=== PATIENT | male | born 1950 | race African-American/Black ===

== ENCOUNTER 2016-11-27 11:09 | Emergency (ER) | payer OTHER ==
[2016-11-27] MEDS ORDERED: NITROGLYCERIN SL PRN ×2 (11:17→11:35)
[2016-11-27] MEDS ORDERED: ASPIRIN PO STA ×3 (11:17→11:35)
--- NOTE | 2016-11-27 11:41 | PROVIDER DOCUMENTATION ---
HPI-Chest Pain - General Source: patient, family () - History of Present Illness-CP Location: reports: central Chest Pain Radiation: reports: no radiation Quality of Pain: reports: burning Severity in ED: mild Onset/Duration: last night Timing: gone now Context/Activities at Onset: reports: light activity Modifying Factors: improves with: nothing Associated Symptoms: denies: abdominal pain, back pain, diaphoresis, dizziness, edema, fatigue, fever/chills, headache, heartburn, nausea, rash, shortness of breath, swelling/lump in chest, syncope, vomiting, weakness Nitro Today/Relief: no nitro taken today Aspirin Treatment Today: no aspirin today Prior Chest Pain/Cardiac Workup: reports: stress test Similar Symptoms Previously?: Yes Recently Seen Here or By Another Healthcare Provider: Yes <Bernadette Rosales - Last Filed: 11/27/16 12:25> <Adan Jaime I - Last Filed: 11/27/16 12:46> - General Chief Complaint: Chest Pain Stated Complaint: CHEST PAIN Time Seen by Provider: 11/27/16 11:17 Allergies/Adverse Reactions: Patient Allergies Allergy/AdvReac Type Severity Reaction Status Date / Time No Known Allergies Allergy Verified 09/06/16 12:22 Home Medications: Home Medication List Medication Instructions Recorded Confirmed Last Taken Type Losartan/Hctz [Hyzaar 50/12.5 mg] 1 each PO DAILY 02/27/15 09/06/16 07/10/16 04: 30 History Amoxicillin [Amoxil] 875 mg PO BID #14 tablet 09/06/16 Unknown Rx Chlorpheniramine/Dextromethorp 1 each PO Q6H #30 tablet 09/06/16 Unknown Rx [Coricidin Hbp Cough & Cold Tab] - History of Present Illness-CP Nature of Presenting Problem: Pt is 66 y/o M presents to the ED with chest pain. Pt states it feels like it is burning. Pt denies SOB. Pt denies N/V/D. Pt states having prior chest pain. Pt states having a stress test 3 years ago. Pt states his PCP's told him he had a blockage in heart. (Bernadette Rosales) Review of Systems - Adult - REVIEW OF SYSTEMS - ADULT Constitutional: denies: chills, fever Eyes: denies: blurred vision, double vision Ears, Nose, Mouth & Throat: denies: ear pain, nose pain, throat pain Cardiovascular: reports: chest pain, irregular heart rate (ben). denies: heart murmur Respiratory: denies: cough, shortness of breath, wheezing Gastrointestinal: denies: abdominal pain, diarrhea, frequent heartburn, nausea, vomiting Genitourinary: denies: dysuria, hematuria Musculoskeletal: denies: bone pain, joint swelling, neck pain Integumentary: denies: hives, itching Neurological: denies: dizziness/vertigo, headache/migraines Psychiatric: reports: no symptoms reported Endocrine: reports: no symptoms reported Hematologic/Lymphatic: reports: no symptoms reported Allergic/Immunologic: reports: no symptoms reported All Other Systems: Reviewed and Negative <Bernadette Rosales - Last Filed: 11/27/16 12:25> Past History - Adult - PAST MEDICAL HISTORY-ADULT Review of Records: reports: Nursing Assessment Review, Medications Reviewed, Social history reviewed & non-contributory. Major Childhood Illnesses: reports: denies history Cardiovascular: reports: HTN Respiratory: reports: denies history Gastrointestinal: reports: GERD Obstetrical/Gynecological: reports: denies history Genitourinary: reports: denies history Musculoskeletal: reports: denies history Neurological: reports: denies history Endocrine/Immune: reports: denies history Other Conditions: reports: denies history - PRIOR SURGERIES/PROCEDURES Surgical/Procedure History: reports: none - IMMUNIZATION STATUS Childhood Immunizations: See Nurse Assessment Flu Vaccine: See Nurse Assessment - FAMILY HISTORY Family History: reviewed, not pertinent - SOCIAL HISTORY Smoking: quit greater than 1 year, cigarettes, less than 1 pack/day, other ( dips ) Provider spent 3-5 mins advising pt. on dangers of tobacco.: Discussed manners to quit use, and f/u contacts for add'l counseling. Substance Use: denies Living Situation: family <Bernadette oRsales - Last Filed: 11/27/16 12:25> Physical Exam-General - PHYSICAL EXAM-ADULT Initial Vital Signs Reviewed: Yes - CONSTITUTIONAL General Appearance: appears well, alert, no apparent distress - EYES Eyes: PERRL/EOMI, pink conjunctivae, fundi clear, no AV nicking - HEAD, EARS, NOSE, MOUTH & THROAT HENMT: normocephalic/atraumatic, moist mucous membranes, normal ENT inspection, TMs normal, pharynx normal - NECK Neck: non-tender, full range of motion, supple, normal inspection - RESPIRATORY Respiratory: chest non-tender, lungs clear, normal breath sounds, no pleuratic chest pain, no respiratory distress, no accessory muscle use - CARDIOVASCULAR Cardiovascular: normal peripheral pulses, no edema, no gallop, no JVD, no murmur , bradycardia - GASTROINTESTINAL (ABDOMEN) Abdominal Exam: normal bowel sounds, non tender, soft, no organomegaly, no pulsatile mass - LYMPHATIC Lymphatic: no adenopathy - MUSCULOSKELETAL Back Exam: normal inspection, no CVA tenderness, no vertebral tenderness Extremity: normal range of motion, non-tender, normal gait, normal inspection, no pedal edema, no calf tenderness, normal capillary refill - SKIN Integumentary: normal color, normal turgor, warm/dry - NEUROLOGIC Neurologic: grossly normal - PSYCHIATRIC Psych/Mental Status: normal mood/affect, oriented x 3 <Bernadette Rosales - Last Filed: 11/27/16 12:25> Progress - EKG 1 Time of EKG reading by physician:: 11:22 EKG Read and Signed by:: Adan Jaime EKG Interpretation (*Must complete 3 of following elements*): Abnormal Rate: 52 Rhythm: sinus bradycardia Comments: otherwise normal ECG - XRAY 1 XRAY: Bilateral XRAY Study: Chest <Bernadette Rosales - Last Filed: 11/27/16 12:25> <Adan Jaime I - Last Filed: 11/27/16 12:46> - PLAN OF CARE/RESULTS Progress/Plan/Lab Results: Orders Category Date Time Status Cardiac Monitoring DIRECTED Care 11/27/16 11:18 Completed Cardiac Monitoring DIRECTED Care 11/27/16 11:18 Inactive Cardiac Monitoring DIRECTED Care 11/27/16 11:35 Active Oxygen Therapy- ED Nursing DIRECTED Care 11/27/16 11:18 Inactive Oxygen Therapy- ED Nursing DIRECTED Care 11/27/16 11:35 Active Saline Loc NOW Care 11/27/16 11:18 Completed Saline Loc NOW Care 11/27/16 11:18 Inactive Saline Loc NOW Care 11/27/16 11:35 Active CHEST-2 VIEWS [RAD] Stat Exams 11/27/16 11:35 Ordered CBC WITH ELECTRONIC DIFF [HEME] Stat Lab 11/27/16 11:35 Ordered CK PROFILE [SP CHEM] Stat Lab 11/27/16 11:35 Ordered COMPREHENSIVE METABOLIC PANEL [CHEM] Stat Lab 11/27/16 11:35 Ordered D-D[address]ER [address] [COAG] Stat Lab 11/27/16 11:35 Ordered MAGNESIUM [CHEM] Stat Lab 11/27/16 11:35 Ordered PRO B-NATRIURETIC PEPTIDE Stat Lab 11/27/16 11:[address]IME WITH INR PL [COAG] Stat Lab 11/27/16 11:[address] [COAG] Stat Lab 11/27/16 11:35 Ordered TROPONIN T Stat Lab 11/27/16 11:35 Ordered Aspirin Med 11/27/16 11:17 Discontinued 325 mg PO STAT STA Aspirin Med 11/27/16 11:18 Discontinued 325 mg PO STAT STA Aspirin Med 11/27/16 11:35 Discontinued 325 mg PO STAT STA Nitroglycerin Sl [Nitroglycerin] Med 11/27/16 11:17 Discontinued 0.4 mg SL Q5M PRN PRN Nitroglycerin Sl [Nitroglycerin] Med 11/27/16 11:35 Active 0.4 mg SL Q5M PRN PRN EKG [EKG] Stat Ther 11/27/16 11:35 Ordered Vital Signs - 24 hr 11/27/16 11:15 Temperature 97.2 F L Pulse Rate 59 L Respiratory 18 Rate Blood Pressure 123/78 O2 Sat by Pulse 99 Oximetry (Bernadette Rosales) Departure <Bernadette Rosales - Last Filed: 11/27/16 12:25> - Departure Time of Disposition Order: 12:45 Certified Medical Emergency: Emergent <Adan Jaime I - Last Filed: 11/27/16 12:46> - Departure DIAGNOSIS: Atypical chest pain, GERD (gastroesophageal reflux disease) Disposition: HOME 01 Condition: Stable Attestation - Scribe Verification/Attestation Scribe:: Bernadette Rosales Acting as Scribe for:: Adan Jaime Scribjose documention review:: This chart was documented by a scribe and accurately reflects the service the provider performed and the decisions made by the provider. <Bernadette Rosales - Last Filed: 11/27/16 12:25> - Scribe Verification/Attestation Scribe:: Jaime,Adan I Scribe documention review:: This chart was documented by a scribe and accurately reflects the service the provider performed and the decisions made by the provider. <Adan Jaime I - Last Filed: 11/27/16 12:46> Physician Attestation - Physician Attestation I, the provider, attest to the following statement:: Adan Jaime Physician documentation Attestation:: This documentation recorded by the scribe accurately reflects the service I personally performed and the decisions made by me. <Adan Jaime I - Last Filed: 11/27/16 12:46>
[2016-11-27 11:57] LABS: MANUAL DIFF NEEDED? NO
[2016-11-27 12:01] LABS: BASO% 0.4 % (0.0-0.8); EOS# 0.12 X1000 (0.0-0.7); EOS% 2.7 % (0.0-10.0); HEMATOCRIT 41.4 % (42.0-52.0); HEMOGLOBIN 14.1 g/dL (14.0-18.0); LYMPH# 2.44 X1000 (1.2-3.4); LYMPH% 54.7 % (20.5-51.1); MCH 32.2 PG (27-31); MCHC 34.1 g/dL (33-37); MCV 94.5 FL (81-99); MONO% 11.2 % (1.7-9.3); MPV 10.1 FL (7.4-10.4); PLT 241 X1000 (130-400); RBC 4.38 XMIL (4.7-6.1)
[2016-11-27 12:15] LABS: AGAP 9; ALBUMIN 4.1 g/dL (3.5-5.0); ALKALINE PHOSPHATASE 60 U/L (32-122); BUN 16 mg/dL (8-22); CALCIUM 9.9 mg/dL (8.8-10.2); CHLORIDE 104 mmol/L (98-107); CK PROFILE 136 U/L (24-204); COSMO 283; GOT 23 U/L (10-34); GPT 23 U/L (10-44); INR 0.99 (0.86-1.15); MAGNESIUM 2.2 mg/dL (1.5-2.7); POTASSIUM 3.7 mmol/L (3.5-5.1); PROTIME 13.4 Seconds (12.1-15.5); SODIUM 141 mmol/L (136-145); TCO2 28 mmol/L (25-35); TOTAL PROTEIN 7.7 g/dL (6.3-8.3)
[2016-11-27 12:16] LABS: PTT PL 28.3 Seconds (22.6-43.9)
[2016-11-27] MEDS ORDERED: CATAPRES PO ONE (12:29)
[2016-11-27] MEDS ORDERED: NITROGLYCERIN LINGUAL SPRAY SL ONE (12:29)
[2016-11-27] MEDS ORDERED: G.I. COCKTAIL PO ONE (12:29)
[2016-11-27 13:13] VITALS: BP 137/68
--- NOTE | 2016-11-27 13:51 | Diag Imaging Result Document ---
PROCEDURE NAME: CHEST-2 VIEWS - 11/27/2016 CHEST, TWO VIEWS: INDICATION: Chest pain. FINDINGS: The heart size is within normal limits. The pulmonary vasculature is not congested. No infiltrate, effusion, or pneumothorax is noted. IMPRESSION: No acute cardiopulmonary abnormality is appreciated.
--- NOTE | 2016-11-28 05:48 | EKG Report ---
Test Performed on : 11/27/2016 11:22:02 AM Test Reason : CHEST PAIN Blood Pressure : / mmHG Vent. Rate : 052 BPM Atrial Rate : 052 BPM P-R Int : 166 ms QRS Dur : 086 ms QT Int : 442 ms P-R-T Axes : 056 015 050 degrees QTc Int : 411 ms Sinus bradycardia. Otherwise normal ECG When compared with ECG of 25-APR-2016 10:34, No significant change was found Unconfirmed Result
== END 2016-11-27 13:12 | disposition home or self-care (01) ==
LOC: P.ED 11:09
DX: K21.9 Gastro-esophageal reflux disease without esophagitis (principal); R07.89 Other chest pain; R00.1 Bradycardia, unspecified; I10 Essential (primary) hypertension; Z87.891 Personal history of nicotine dependence; R94.31 Abnormal electrocardiogram [ECG] [EKG]; Z79.899 Other long term (current) drug therapy
CPT/HCPCS: 71020; 80053; 82550; 83735; 83880; 84484; 85025; 85379; 85610; 85730; 93005; 99284